=== PATIENT | female | born 1935 | race Caucasian/White ===

== ENCOUNTER 2022-12-13 06:07 | Day surgery (SDC) | payer OTHER ==
[~2022-12-13] VITALS: Ht 132.1 cm; Wt 50.9 kg
[2022-12-13] MEDS ORDERED: LIDOCAINE 4% 50 ML SOLUTION TP ONE (06:08)
[2022-12-13] MEDS ORDERED: LIDOCAINE 2% 11 ML JELLY TP ONE (06:08)
[2022-12-13] MEDS ORDERED: BENZOCAINE 20% 50 MCG/SPRAY 57 GM TP ONE (06:08)
[2022-12-13] MEDS ORDERED: ALBUTEROL SULFATE 2.5 MG/0.5 ML NEB SOLUTION NEB ONE (06:08)
[2022-12-13 06:59] LABS: COVID AG,FIA SOURCE NASAL SWAB
[2022-12-13] MEDS ORDERED: SODIUM CHLORIDE 0.9% 1,000 ML IV ONE (07:00)
[2022-12-13] MEDS ORDERED: PRED-729 PO (07:37)
[2022-12-13] MEDS ORDERED: MONT-40 PO (07:37)
[2022-12-13] MEDS ORDERED: SIMV-43 PO (07:37)
[2022-12-13] MEDS ORDERED: MELO-108 PO (07:37)
[2022-12-13] MEDS ORDERED: DOXY-469 PO (07:37)
[2022-12-13] MEDS ORDERED: FERR-72 PO (07:37)
[2022-12-13] MEDS ORDERED: FAMO20TA8 PO (07:37)
[2022-12-13] MEDS ORDERED: LEVO75 PO (07:37)
[2022-12-13] MEDS ORDERED: CETI10TA58 PO (07:37)
[2022-12-13] MEDS ORDERED: ATEN-73 PO (07:37)
[2022-12-13] MEDS ORDERED: SODIUM CHLORIDE 0.9% 1,000 ML ONE (07:44)
[2022-12-13] MEDS ORDERED: FentaNYL CITRATE PF 100 MCG/2 ML VIAL ONE (08:30)
[2022-12-13] MEDS ORDERED: MIDAZOLAM HCL 2 MG/2 ML VIAL ONE (08:30)
[2022-12-13] MEDS ORDERED: MethylPREDNISolone SOD SUCC 125 MG/2 ML VIAL IVP ONE (09:30)
[2022-12-13] MEDS ORDERED: MethylPREDNISolone SOD SUCC 125 MG/2 ML VIAL ONE (09:47)
[2022-12-13] MEDS ORDERED: OXYGEN THERAPY IH SCH (20:00)
== END 2022-12-13 12:00 | disposition home or self-care (01) ==
LOC: SURGERY 06:07
PROVIDERS: ATTEND Internal Medicine Critical Care Medicine
DX: J38.4 Edema of larynx (principal); B37.0 Candidal stomatitis; Z20.822 Contact with and (suspected) exposure to COVID-19; Z79.899 Other long term (current) drug therapy; Z98.890 Other specified postprocedural states
CPT/HCPCS: 31623; 88112; 87101; 87220; 87070; 88305; 87186; 31624; 94640; 71045; 71250; 87015; 87426; 87206; J3010; J2250; J2930; Q9967; J7030; C9803; J7613; Z7610